=== PATIENT | male | born 1980 | race Hispanic/Latino ===

== ENCOUNTER 2024-03-11 14:29 | Emergency (ER) | payer OTHER ==
[2024-03-11 16:42] LABS: Absolute Basophils 0.1 K/uL (0-0.5); Absolute Eosinophils 0.2 K/uL (0-0.5); Absolute Lymphocytes (CBC) 2.7 K/uL (0.7-4.9); Absolute Monocytes 0.4 K/uL (0.1-1.3); Basophils % 0.7 % (0-1.3); Eosinophils % 2.8 % (0-4.4); Hematocrit 40.8 % (39.6-49.0); Hemoglobin 14.1 g/dL (13.6-17.9); Lymphocytes % 36.9 % (15.3-44.8); MCH 30.8 pg (27.0-35.0); MCHC 34.6 g/dL (32.0-36.0); MPV 9.3 fL (7.6-11.3); Monocytes % 5.3 % (3.3-12.3); Neutrophils % 54.3 % (41.7-73.7); Nucleated Red Blood Cells % 0.1 % (0-0); Platelets 231 thou/uL (152-406); RBC Red Blood Cell Count 4.58 M/uL (4.33-5.43); Red Cell Distribution Width 14.1 % (12.1-15.2)
[2024-03-11 16:49] LABS: PT Prothrombin Time 10.9 SECONDS (9.4-12.5); Protime INR 0.97
[2024-03-11 16:56] LABS: Anion Gap 8.9 mEq/L (5.0-15.0); Potassium 3.9 mEq/L (3.5-5.1)
--- NOTE | 2024-03-11 17:03 | EDPHYS ---
Physician Documentation [facility] Name: Boo Healy Age: 43 yrs Sex: Male : 1980 Arrival Date: 03/11/2024 Time: 14:29 Bed 13 Private MD: ED Physician Zuhair Boucher HPI: 03/11 15:22 This 43 yrs old Male presents to ER via Ambulatory with complaints of Known ec2 DVT, need labs. 15:22 Patient arrives today with known DVT in the right lower extremity that he had ec2 discovered outpatient with Dr. Wilcox orthopedic surgery who I talked with prior to arrival. Patient reports no other concerns.. Historical: - Allergies: 15:02 No Known Allergies; tm6 - PMHx: 15:02 None; tm6 - PSHx: 15:02 None; tm6 - Immunization history:: Client reports receiving the 2nd dose of the Covid vaccine. - Infectious Disease History:: Denies. - Social history:: Smoking status: Patient denies any tobacco usage or history of. Patient uses alcohol, weekly. ROS: 15:22 Constitutional: as per hpi ec2 Vital Signs: 15:02 Resp 17; Temp 98.5(O); Pulse Ox 100% ; Weight 104.33 kg; Height 5 ft. 11 in. ; Pain tm6 0/10; 15:02 BP 152 / 93; Pulse 59; MAP 109 mmHg; tm6 16:30 BP 138 / 68; Pulse 61; Resp 16; Pulse Ox 96% ; aa5 17:30 BP 135 / 75; Pulse 55; Resp 16; Temp 98; Pulse Ox 97% ; aa5 15:02 Body Mass Index 32.08 (104.33 kg, 180.34 cm) tm6 15:02 Pain Scale: Adult tm6 MDM: 14:35 Medical Screening Exam initiated ec2 15:22 Data reviewed: vital signs, nurses notes. ED course: Patient arrives today with known ec2 DVT. Examination shows right lower extremity findings as above. Will obtain lab work and likely start the patient on outpatient anticoagulation.. 17:03 ED course: Labs are unrevealing. Will discharge home. Turn precautions given.. ec2 03/11 14:35 Order name: CBC with Diff; Complete Time: 17:02 ec2 03/11 14:35 Order name: BMP; Complete Time: 17:02 ec2 03/11 14:35 Order name: PT-INR; Complete Time: 17:02 ec2 03/11 14:35 Order name: Ptt, Activated; Complete Time: 17:02 ec2 Administered Medications: No medications were administered Disposition Summary: 03/11/24 17:03 Discharge Ordered Notes: Location: Home ec2 Condition: Stable ec2 Diagnosis - Acute embolism and thrombosis of unspecified deep veins of right lower extremity ec2 Followup: ec2 - With: Private Physician - When: - Reason: Re-evaluation by your physician Discharge Instructions: - Discharge Summary Sheet ec2 - Deep Vein Thrombosis ec2 Forms: - Medication Reconciliation Form ec2 - Antibiotic Education ec2 - Prescription Opioid Use ec2 - Patient Portal Instructions ec2 - Leadership Thank You Letter ec2 Prescriptions: - rivaroxaban 15 mg (42)- 20 mg (9) Oral Tablet, Dose Pack - take 1 tablet ORAL route as directed on starter pack take one-15 mg tablet ec2 twice daily for 21 days, then one-20 mg tablet once daily; must take with meal/food; 1 unit; Refills: 0, Product Selection Permitted Signatures: Dispatcher [employer] Zuhair Perkins MD MD ec2 Pat Iqbal RN RN tm6
--- NOTE | 2024-03-11 17:03 | ER ---
Nurse's Notes [facility] Name: Boo Healy Age: 43 yrs Sex: Male : 1980 Arrival Date: 03/11/2024 Time: 14:29 Bed 13 Private MD: Diagnosis: Acute embolism and thrombosis of unspecified deep veins of right lower extremity Presentation: 03/11 15:03 Chief complaint: Patient states: was Dr. Wilcox's office, they did imaging on my right tm6 leg, said I have blood clot and need to be treated emergently. Coronavirus screen: Client denies travel out of the [place] in the last 14 days. Ebola Screen: Patient negative for fever greater than or equal to 101.5 degrees Fahrenheit, and additional compatible Ebola Virus Disease symptoms Patient denies exposure to infectious person. Patient denies travel to an Ebola-affected area in the 21 days before illness onset. No symptoms or risks identified at this time. Initial Sepsis Screen: Does the patient meet any 2 criteria? No. Patient's initial sepsis screen is negative. Does the patient have a suspected source of infection? No. Patient's initial sepsis screen is negative. Risk Assessment: Do you want to hurt yourself or someone else? Patient reports no desire to harm self or others. Onset of symptoms was March 11, 2024. 15:03 Method Of Arrival: Ambulatory tm6 15:03 Acuity: ОЛЕГ 3 tm6 Triage Assessment: 15:03 General: Appears in no apparent distress. Behavior is calm, cooperative. Pain: Denies tm6 pain. EENT: No signs and/or symptoms were reported regarding the EENT system. Neuro: Level of Consciousness is awake, alert, obeys commands, Oriented to person, place, time, situation. Cardiovascular: Patient's skin is warm and dry. Respiratory: Airway is patent Respiratory effort is even, unlabored, Respiratory pattern is regular, symmetrical. GI: No signs and/or symptoms were reported involving the gastrointestinal system. Abdomen is flat, non-distended. : No signs and/or symptoms were reported regarding the genitourinary system. Derm: No signs and/or symptoms reported regarding the dermatologic system. Musculoskeletal: Swelling present in right leg. Historical: - Allergies: 15:02 No Known Allergies; tm6 - PMHx: 15:02 None; tm6 - PSHx: 15:02 None; tm6 - Immunization history:: Client reports receiving the 2nd dose of the Covid vaccine. - Infectious Disease History:: Denies. - Social history:: Smoking status: Patient denies any tobacco usage or history of. Patient uses alcohol, weekly. Screenin:04 [facility] ED Fall Risk Assessment (Adult) History of falling in the last 3 months, aa5 including since admission No falls in past 3 months (0 pts) Confusion or Disorientation No (0 pts) Intoxicated or Sedated No (0 pts) Impaired Gait Yes (1 pt) Mobility Assist Device Used Yes (1 pt) Altered Elimination No (0 pt) Score/Fall Risk Level 0 - 2 = Low Risk Maintained a safe environment, Provided non-skid footwear, Hourly rounding (assess needs \T\ fall precautionary measures) done. Abuse screen: Denies threats or abuse. Nutritional screening: No deficits noted. Tuberculosis screening: No symptoms or risk factors identified. Assessment: 16:04 General: Appears uncomfortable, well groomed, well developed, well nourished, Behavior aa5 is calm, cooperative, appropriate for age, Reports blood clot in right leg, sent by Dr office for emergent care. Pain: Denies pain. Neuro: Level of Consciousness is awake, alert, obeys commands, Oriented to person, place, time, situation, Appropriate for age. Cardiovascular: Patient's skin is warm and dry. Respiratory: Airway is patent Respiratory effort is even, unlabored, Respiratory pattern is regular, symmetrical. GI: No signs and/or symptoms were reported involving the gastrointestinal system. : No signs and/or symptoms were reported regarding the genitourinary system. EENT: No signs and/or symptoms were reported regarding the EENT system. Derm: Skin is intact, is healthy with good turgor, Skin is pink, warm \T\ dry. Musculoskeletal: Swelling present in right leg. Vital Signs: 15:02 Resp 17; Temp 98.5(O); Pulse Ox 100% ; Weight 104.33 kg; Height 5 ft. 11 in. ; Pain tm6 0/10; 15:02 BP 152 / 93; Pulse 59; MAP 109 mmHg; tm6 16:30 BP 138 / 68; Pulse 61; Resp 16; Pulse Ox 96% ; aa5 17:30 BP 135 / 75; Pulse 55; Resp 16; Temp 98; Pulse Ox 97% ; aa5 15:02 Body Mass Index 32.08 (104.33 kg, 180.34 cm) tm6 15:02 Pain Scale: Adult tm6 ED Course: 14:33 Patient arrived in ED. ra3 14:35 Zuhair Boucher MD is Attending Physician. ec2 15:03 Triage completed. tm6 15:03 Arm band placed on right wrist. tm6 16:04 Patient has correct armband on for positive identification. Bed in low position. Call aa5 light in reach. Side rails up X2. Provided Education on: POC. Verbalized understanding. . Client placed on continuous cardiac and pulse oximetry monitoring. NIBP monitoring applied. Pulse ox on. NIBP on. 16:04 No provider procedures requiring assistance completed. Initial lab(s) drawn, by me, aa5 sent to lab. Inserted saline lock: 20 gauge in right antecubital area, using aseptic technique. 16:27 Tessa Schroeder, RN is Primary Nurse. me1 17:56 IV discontinued, intact, bleeding controlled, No redness/swelling at site. Pressure me1 dressing applied. Administered Medications: No medications were administered Medication: 16:04 VIS not applicable for this client. aa5 Outcome: 17:03 Discharge ordered by . ec2 17:56 Discharged to home ambulatory, with significant other, me1 17:56 Condition: stable 17:56 Discharge instructions given to patient, significant other, Instructed on discharge instructions, follow up and referral plans. medication usage, Demonstrated understanding of instructions, follow-up care, medications, Prescriptions given X 1, 17:56 Patient left the ED. me1 Signatures: Priya Douglas RN RN aa5 Tessa Schroeder, RN RN me1 Zuhair Boucher MD MD ec2 Pat Iqbal RN RN tm6 Karine Ackerman ra3 Corrections: (The following items were deleted from the chart) 17:42 15:03 Chief complaint: Patient states: was Dr. Wilcox's office, they did imaging on my aa5 right leg, said I have blood clot and need to be treated emergently tm6
[2024-03-11 20:58] VITALS: BP 135/75; TEMP 98; O2SAT 97
== END 2024-03-11 17:56 | disposition home or self-care (01) ==
LOC: ER 14:29
DX: I82.4Z1 Acute embolism and thrombosis of unspecified deep veins of right distal lower extremity (principal)
CPT/HCPCS: 36415; 80048; 85025; 85610; 85730; 99284